=== PATIENT | male | born 2000 | race Caucasian/White ===

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

== ENCOUNTER 2020-01-09 13:52 | Emergency (ER) | payer BC, SELFPAY ==
[2020-01-09 13:53] VITALS: BP 103/93; PULSE 134; RESP 18; TEMP 38.8; O2SAT 95; BMI 27.2
[2020-01-09 13:55] VITALS: BP 103/93; PULSE 134; RESP 18; TEMP 38.8; O2SAT 95
[2020-01-09 14:55] VITALS: BP 121/52; PULSE 109; RESP 18; TEMP 38.3; O2SAT 95
--- NOTE | 2020-01-09 15:17 | CT_ITS ---
STUDY: CT SOFT TISSUE NECK WITH CONTRAST REASON FOR EXAM: Male, 19 years old. SORE THROAT, SWELLING, DIFFICULTY TALKING RADIATION DOSAGE (If Supplied By Facility): CTDIvol = ( 16.90 ) mGy, DLP = ( 523.71 ) mGycm TECHNIQUE: The patient was scanned in a multi-detector CT scanner. High resolution transaxial imaging was performed following intravenous administration of IV 75mL Isovue-370. Sagittal and coronal images were reconstructed. Individualized dose optimization techniques were used for this CT. COMPARISON: None. FINDINGS: Normal bilateral parotid glands. Normal bilateral sewing machine mechanic spaces. Normal bilateral parapharyngeal spaces. Normal bilateral carotid spaces. Normal bilateral sublingual and submandibular glands and spaces. Normal visualized nasopharynx. Normal retropharyngeal space. Normal perivertebral space. There is moderate hypertrophy of the parapharyngeal and oropharyngeal tonsils without abscess or focal mass. Hyperenhancement is demonstrated. The visualized tongue, tongue base and oropharynx are normal. There are minimally enlarged lymph nodes of the neck, with preservation of normal kaylan architecture, consistent with a reactive lymph hyperplasia. There is no demonstrated solid or cystic mass lesion. There is no abnormal contrast enhancement. Normal epiglottis, bilateral vallecula and hypopharynx. The pre-epiglottic and paraglottic adipose spaces are normal. Normal visualized bilateral piriform sinuses, aryepiglottic folds, vocal cords, and arytenoid-cricoid articulations. Normal subglottic trachea. Normal bilateral lobes of the thyroid gland. Normal visualized pulmonary apices. Normal visualized paranasal sinuses. Normal visualized cervical spine. CT/Soft Tissue Neck WITH Contrast IMPRESSION: Findings are compatible with acute tonsillitis 1. There is moderate hypertrophy of the parapharyngeal and oropharyngeal tonsils without abscess or focal mass. Hyperenhancement is demonstrated. Electronically Signed: Amos Coon MD at 17:31 EDT , Service support ,
[2020-01-09 15:45] LABS: Absolute Lymphocyte Count 7.83 X10^3/uL (0.83-4.51); Absolute Neutrophil Count 4.3 X10^3/uL (2.0-7.7); Basophil# 0.15 X10^3/uL; Basophil% 1.1 % (0-1); Eosinophils% 0.7 % (0-5); Hematocrit 46.4 % (40-54); Hemoglobin 15.2 g/dL (13.0-16.5); Lymphocyte # 7.83 X10^3/ul (4.0); Lymphocyte % 56.7 % (19-41); Mean Corp Hgb Conc 32.8 g/dL (32-36); Mean Corpuscular Hgb 28.6 pg (27.0-32.0); Mean Corpuscular Volume 87.4 fL (80-94); Mean Platelet Vol. 9.3 fl (6.2-12.0); Monocyte# 1.38 X10^3/uL; NRBC Flagged by Analyzer 0 % (0-5); Neutrophil # 4.33 X10^3/uL (2.7-7.7); Neutrophil % 31.3 % (47-70); POSITIVE DIFFERENTIAL YES; POSITIVE MORPHOLOGY YES; Platelet Count 282 K/mm3 (150-450); RBC Distribution Width CV 13.3 % (11.6-14.6); RBC Distribution Width SD 42.5 fl (35.1-43.9); Red Blood Count 5.31 M/mm3 (4.6-6.2); White Blood Count 13.8 K/mm3 (4.4-11.0)
[2020-01-09 15:51] LABS: Differential Indicated SCAN CRITERIA MET
[2020-01-09 15:52] VITALS: BP 121/52; PULSE 109; RESP 18; O2SAT 95
[2020-01-09] MEDS: dexAMETHasone 10 MG/ML Vial IV (16:08)
[2020-01-09] MEDS: 0.9% Normal Saline 1,000 ML 999 ML IV (16:08)
[2020-01-09] MEDS: Ketorolac 30 MG/ML Syringe IV (16:08)
--- NOTE | 2020-01-09 16:18 | ED.VIS.GEN ---
History of Present Illness Chief Complaint: Sore Throat Informant: Patient Narrative: Patient states that about 2 weeks ago he began to experience a fever and body aches. This lasted 5 to 6 days and then he developed a sore throat. Fever had not been present since that time. Last he saw his primary care physician during a virtual visit and was placed on a Z-Delfin. He states that today is his last dose. He now notes fever worsening swelling in his throat and pain. He notes some cough and shortness of breath. He also had diarrhea. He has not been screened for COVID. He has seen Dr. Child in the past for ENT. Past Medical History - Allergies and Home Meds Allergies/Adverse Reactions: Allergies No Known Allergies Allergy (Verified 01/09/20 13:55) Primary Care Physician: Tevin Child MD [STAFF PHYSICIAN] - As soon as possible Smoking Status: Never smoker Review of Systems General: Reports: Chills, Fever, Malaise. Denies: Sweats Eyes: Denies: Visual changes - bilaterally, Diplopia ENT: Reports: Sore throat. Denies: Rhinorrhea Cardiovascular: Denies: Chest pain, Palpitations Respiratory: Reports: Dyspnea, Cough. Denies: Dyspnea on exertion Gastrointestinal: Reports: Diarrhea. Denies: Abdominal pain, Nausea, Vomiting, Melena, Hematochezia Genitourinary: Denies: Dysuria, Hematuria, Frequency Musculoskeletal: Reports: Myalgias. Denies: Back pain, Extremity Pain Skin: Denies: Rash, Wounds Neurological: Denies: Headache, Weakness, Numbness Physical Exam Vital Signs/Narrative: Vital Signs Temp Pulse Resp BP Pulse Ox 01/09/20 13:55 101.9 F H 134 H 18 103/93 H 95 01/09/20 13:53 101.9 F H 134 H 18 103/93 H 95 Inital Vital Signs reviewed: Yes General: Well nourished, Well developed, No Acute Distress Head: Normocephalic, Atraumatic Eyes: Perrl, EOMI ENT: No rhinorrhea, Dry mucous membranes, - - There are bilateral tonsillar exudates right greater than left. These come near but not to the uvula. Neck: Supple, No lymphadenopathy - He has tender anterior lymph nodes. Cardiovascular: Regular rate, No murmurs, Tachycardia Respiratory: No distress, CTA bilaterally, Chest nontender Abdomen: Soft, Nontender, Nondistended, Normal bowel sounds Back: Nontender, Normal Inspection Extremities: Nontender, No edema Skin: Normal color, No rash Neurological: Alert, Oriented x3, Cranial nerves II-XII grossly intact, Normal Strength, Normal Sensation Psychological: Normal affect, Normal Mood Diagnostic/Tx/Re-eval Clinical Impression(s) from Imaging Studies Soft Tissue Neck CT 01/09/20 15:17 IMPRESSION: Findings are compatible with acute tonsillitis 1. There is moderate hypertrophy of the parapharyngeal and oropharyngeal tonsils without abscess or focal mass. Hyperenhancement is demonstrated. Electronically Signed: Amos Coon MD at 17:31 EDT , Service support , Laboratory Last Values WBC 13.8 K/mm3 (4.4-11.0) H 01/09/20 15:33 RBC 5.31 M/mm3 (4.6-6.2) 01/09/20 15:33 Hgb 15.2 g/dL (13.0-16.5) 01/09/20 15:33 Hct 46.4 % (40-54) 01/09/20 15:33 MCV 87.4 fL (80-94) 01/09/20 15:33 MCH 28.6 pg (27.0-32.0) 01/09/20 15:33 MCHC 32.8 g/dL (32-36) 01/09/20 15:33 RDW Std Deviation 42.5 fl (35.1-43.9) 01/09/20 15:33 RDW Coeff of Dia 13.3 % (11.6-14.6) 01/09/20 15:33 Plt Count 282 K/mm3 (150-450) 01/09/20 15:33 MPV 9.3 fl (6.2-12.0) 01/09/20 15:33 Immature Gran % (Auto) 0.200 % (0.0-0.9) 01/09/20 15:33 Neut % (Auto) 31.3 % (47-70) L 01/09/20 15:33 Lymph % (Auto) 56.7 % (19-41) H 01/09/20 15:33 [place] % (Auto) 10.0 % (0-10) 01/09/20 15:33 Eos % (Auto) 0.7 % (0-5) 01/09/20 15:33 Baso % (Auto) 1.1 % (0-1) H 01/09/20 15:33 Absolute Neuts (auto) 4.3 X10^3/uL (2.0-7.7) 01/09/20 15:33 Absolute Lymphs (auto) 7.83 X10^3/uL (0.83-4.51) H 01/09/20 15:33 Nucleated RBC % 0 % (0-5) 01/09/20 15:33 Differential Comment 01/09/20 15:33 Diff Path Review November01/09/20 15:33 Atypical Lymphocytes 1+ % 01/09/20 15:33 Reactive Lymphocytes 2+ 01/09/20 15:33 Smudge Cells 1+ H 01/09/20 15:33 Platelet Estimate ADEQUATE (ADEQ) 01/09/20 15:33 RBC Morphology NORM C+C NORMAL (NORM C&C) 01/09/20 15:33 Sodium 134 mmol/L (136-145) L 01/09/20 15:33 Potassium 4.1 mmol/L (3.5-5.1) 01/09/20 15:33 Chloride 100 mmol/L (98-107) 01/09/20 15:33 Carbon Dioxide 27.0 mmol/L (21.0-32.0) 01/09/20 15:33 Anion Gap 7 (5-15) 01/09/20 15:33 BUN 10 mg/dL (7-18) 01/09/20 15:33 Creatinine 0.79 mg/dL (0.70-1.30) 01/09/20 15:33 Estim Creat Clear Calc 147.91 ml/min 01/09/20 15:33 Est GFR (MDRD) Af Amer 158 mL/min (>60) 01/09/20 15:33 Est GFR (MDRD) Non-Af 131 mL/min (>60) 01/09/20 15:33 BUN/Creatinine Ratio 12.7 RATIO (10-20) 01/09/20 15:33 Glucose 91 mg/dL (74-106) 01/09/20 15:33 Calcium 8.9 mg/dL (8.5-10.1) 01/09/20 15:33 Total Bilirubin 0.60 mg/dL (0.20-1.00) 01/09/20 15:33 AST 61 U/L (15-37) H 01/09/20 15:33 ALT 348 U/L (16-61) H 01/09/20 15:33 Alkaline Phosphatase 145 U/L (45-117) H 01/09/20 15:33 Total Protein 8.1 g/dL (6.4-8.2) 01/09/20 15:33 Albumin 3.7 g/dL (3.2-5.0) 01/09/20 15:33 Globulin 4.4 g/dL (2.2-4.2) H 01/09/20 15:33 Albumin/Globulin Ratio 0.8 RATIO (0.9-2.4) L 01/09/20 15:33 - Medical Decision Making CT does not demonstrate any obvious retropharyngeal or peritonsillar abscess. Throat culture is pending. Patient received Toradol Decadron and 2 L of IV fluids. His COVID was sent but will not be readily available. I will place him on Augmentin. I have asked that he follow-up with ENT but I did tell them that most likely they will not see him into his COVID is negative and he should in fact self isolate. If he gets worse he can return to the emergency department. ED Disposition - Plan for ED Patient: Disposition: Home or Assisted Living Diagnosis: Tonsillitis, Dehydration Instructions: ED Pharyngitis Report Pending Prescriptions: Amox/Clav 400mg/5ml Susp [Augmentin Suspension 400mg/5ml] 875 mg PO BID 10 Days #220 ml Prescription Printed Referrals: Tevin Child MD [STAFF PHYSICIAN] - As soon as possible Additional Instructions: Your COVID swab will be sent. You should self isolate until this is back. If you need to be seen for worsening symptoms please return to the emergency department.
[2020-01-09 16:38] LABS: ALB/GLOB Ratio 0.8 RATIO (0.9-2.4); AST(SGOT) 61 U/L (15-37); Alanine Aminotransfer ALT/SGPT 348 U/L (16-61); Albumin, Serum 3.7 g/dL (3.2-5.0); Alkaline Phosphatase 145 U/L (45-117); Anion Gap 7 (5-15); BUN 10 mg/dL (7-18); BUN/Creat Ratio 12.7 RATIO (10-20); Calcium,Total 8.9 mg/dL (8.5-10.1); Chloride 100 mmol/L (98-107); Creatinine, Serum 0.79 mg/dL (0.70-1.30); EST Glomerular Filtration Rate 131 mL/min (>60); Est Glom Filt Rate - Afr Amer 158 mL/min (>60); Estimated Creatinine Clearance 147.91 ml/min; Globulin 4.4 g/dL (2.2-4.2); Glucose 91 mg/dL (74-106); Potassium 4.1 mmol/L (3.5-5.1); Protein, Total 8.1 g/dL (6.4-8.2); Sodium Level 134 mmol/L (136-145)
[2020-01-09 17:00] VITALS: BP 101/55; PULSE 103; RESP 18; TEMP 37.2; O2SAT 95
[2020-01-09] MEDS: 0.9% Normal Saline 1,000 ML 1000 ML IV (17:16)
[2020-01-09 17:37] LABS: Atypical Lymphocyte 1+ %; Platelet Estimate ADEQUATE (ADEQ); Reactive Lymphocyte 2+; Red Cell Morphology NORM C+C NORMAL (NORM C&C); Smudge Cells 1+
[2020-01-09 18:18] VITALS: BP 110/84; PULSE 73; RESP 15; O2SAT 99
[2020-01-09 19:20] LABS: Internal QC Validated? YES +Cl - CLEAR BKGD; Monotest POSITIVE (Negative)
[2020-01-10 11:41] LABS: Pathologist Review Reviewed
== END 2020-01-09 18:20 | disposition home or self-care (01) ==
PROVIDERS: Emergency Provider Emergency Medicine; PCP Student in an Organized Health Care Education/Training Program
DX: J03.90 Acute tonsillitis, unspecified (principal); E86.0 Dehydration; R19.7 Diarrhea, unspecified
CPT/HCPCS: 70491; 80053; 85025; 86308; 87070; 87635; 87880; 96360; 96361; 99283; G2023; J7030; Q9967; A4216; U0003